=== PATIENT | male | born 1960 | race African-American/Black ===

== ENCOUNTER 2017-11-10 15:55 | Emergency (ER) | payer OTHER ==
[~2017-11-10] VITALS: Ht 177.8 cm; Wt 96.2 kg
[~2017-11-10 15:55] MED LIST: ADVAIR HFA115 MCG/21 INH; ADVAIRDISKUS; ALBUTEROL2.5 MG/0.1 IH; ALBUTEROL2.5 MG/31 IH; ALBUTEROL2.5 MG/31 INH; ANALGESIC325 MG PO; APAP/CODEINE ELI5 M1 OR; ASPIRIN EC325 M1 PO; AZITHROMYCIN 2250 MG PO; BYSTOLIC2.5 MG PO; CARDIZEM CD120 MG PO; CLOPIDOGREL; CRESTOR; EFFIENT10 MG PO; LIPITOR20 MG PO; LIPITOR40 MG PO; MEDROL DOSPAK21 TAB PO; MEDROLDOSEPACK PO; NORVASC 5 MG TAB5 MG PO; NORVASC10 MG PO; PLAVIX 75 MG TA75 M1 PO; PREDNISONE 10 M10 M1 PO; PREDNISONE 20 M20 MG PO; PROAIR HFA8.5 GM INH; SIMVASTATIN20 MG PO; ZPAK PO
[2017-11-10 16:13] VITALS: BP 139/91
[2017-11-10] MEDS ORDERED: DOXYCYCLINE 10100 MG PO (16:46)
[2017-11-10] MEDS ORDERED: PREDNISONE 20 M20 MG PO (16:46)
[2017-11-10] MEDS ORDERED: VENTOLIN HFA 1818 GM INH (17:11)
== END 2017-11-10 17:17 | disposition home or self-care (01) ==
LOC: ER 15:55
DX: J18.9 Pneumonia, unspecified organism (principal); J45.901 Unspecified asthma with (acute) exacerbation; E78.00 Pure hypercholesterolemia, unspecified; Z87.891 Personal history of nicotine dependence

== ENCOUNTER 2018-02-07 14:53 | Emergency (ER) | payer BC, OTHER ==
[~2018-02-07] VITALS: Ht 177.8 cm; Wt 95.3 kg
[~2018-02-07 14:53] MED LIST changes: +DOXYCYCLINE 10100 MG PO; +VENTOLIN HFA 1818 GM INH
[2018-02-07 15:11] LABS: URINE BILIRUBIN NEGATIVE (Negative); URINE BLOOD 3+ (Negative); URINE CLARITY CLEAR; URINE COLOR YELLOW; URINE GLUCOSE-RANDOM* NEGATIVE (Negative); URINE KETONES NEGATIVE (Negative); URINE NITRITE-REFLEX NEGATIVE (Negative); URINE PROTEIN (DIPSTICK) 2+ (Negative)
[2018-02-07 15:12] LABS: URINE LEUKOCYTES-REFLEX 3+ (Negative)
[2018-02-07 15:27] LABS: SQUAMOUS 0-3 Few /LPF (0-3); URINE RBC >20 Many /HPF (0-2); URINE WBC-REFLEX >25 Many /HPF (0-5)
[2018-02-07 15:28] LABS: MUCUS 0-3 Light strn/LPF (None Seen)
[2018-02-07 15:29] LABS: CASTS None Seen /LPF (None Seen); CRYSTALS None Seen /LPF (None Seen)
[2018-02-07 15:32] LABS: HEMATOCRIT 41.1 % (42.0-52.0); HEMOGLOBIN 13.6 gm/dL (14.0-18.0); MCH 24.3 pg (26.0-34.0); MCHC 33.2 g/dL (28.0-37.0); MCV 73.2 fL (80.0-100.0); PLATELET COUNT 149 thou/uL (150-400); RBC 5.61 mil/uL (4.50-6.00); RDW 16.8 % (10.5-14.5); WBC 10.5 thou/uL (4.0-11.0)
[2018-02-07 15:47] LABS: CALCIUM 8.6 mg/dL (8.5-10.1); CREATININE 1.4 mg/dL (0.7-1.3); POTASSIUM 3.6 mmol/L (3.5-5.1)
[2018-02-07 15:51] LABS: ALBUMIN 3.6 g/dL (3.4-5.0); MAGNESIUM 1.9 mg/dL (1.8-2.4); TOTAL PROTEIN 7.7 g/dL (6.4-8.2)
[2018-02-07 16:10] LABS: ABSOLUTE NEUTROPHILS 9.3 thou/uL (1.4-8.2); ANISOCYTOSIS 1+; MICROCYTES 2+
[2018-02-07 16:11] LABS: POLYCHROMASIA OCCASIONAL
[2018-02-07] MEDS ORDERED: PHENAZOPYRIDIN200 M2 PO (16:12)
[2018-02-07] MEDS ORDERED: BACTRIM DS TAB1 EACH PO (16:12)
[2018-02-07] MEDS ORDERED: ONDANSETRON HCL4 M2 PO (17:17)
== END 2018-02-07 17:26 | disposition home or self-care (01) ==
LOC: ER 14:53
PROVIDERS: Physician Assistant
DX: N39.0 Urinary tract infection, site not specified (principal); M79.641 Pain in right hand; M79.642 Pain in left hand; R25.2 Cramp and spasm; F17.210 Nicotine dependence, cigarettes, uncomplicated; J45.909 Unspecified asthma, uncomplicated; E78.00 Pure hypercholesterolemia, unspecified; I10 Essential (primary) hypertension; Z95.5 Presence of coronary angioplasty implant and graft

== ENCOUNTER 2019-04-19 01:41 | Emergency (ER) | payer OTHER ==
[~2019-04-19] VITALS: Ht 177.8 cm; Wt 90.7 kg
[~2019-04-19 01:41] MED LIST changes: +BACTRIM DS TAB1 EACH PO; +ONDANSETRON HCL4 M2 PO; +PHENAZOPYRIDIN200 M2 PO
[2019-04-19 03:23] VITALS: BP 123/72
[2019-04-19] MEDS ORDERED: ADVAIR HFA 230M12 GM INH (03:28)
[2019-04-19] MEDS ORDERED: PREDNISONE 20 M20 MG PO (03:28)
== END 2019-04-19 03:40 | disposition home or self-care (01) ==
LOC: ER 01:41
DX: J45.901 Unspecified asthma with (acute) exacerbation (principal); E78.00 Pure hypercholesterolemia, unspecified; Z95.2 Presence of prosthetic heart valve; Z87.891 Personal history of nicotine dependence

== ENCOUNTER 2019-09-14 13:51 | Emergency (ER) | payer OTHER ==
[~2019-09-14] VITALS: Ht 177.8 cm; Wt 92.1 kg
[~2019-09-14 13:51] MED LIST changes: +ADVAIR HFA 230M12 GM INH
[2019-09-14 14:58] LABS: ABSOLUTE NEUTROPHILS 5.8 thou/uL (1.4-8.2); BASOPHILS 0.3 % (0.0-2.0); EOSINOPHILS 0.1 % (0.0-3.0); HEMATOCRIT 44.4 % (42.0-52.0); HEMOGLOBIN 14.3 gm/dL (14.0-18.0); LYMPHOCYTES 1.9 % (24.0-44.0); MCH 24.5 pg (26.0-34.0); MCHC 32.2 g/dL (28.0-37.0); MCV 76.1 fL (80.0-100.0); MONOCYTES 10.3 % (1.0-8.0); PLATELET COUNT 131 thou/uL (150-400); POLYS 87.4 % (36.0-66.0); RBC 5.84 mil/uL (4.50-6.00); RDW 15.6 % (10.5-14.5); WBC 6.6 thou/uL (4.0-11.0)
[2019-09-14 15:08] LABS: CALCIUM 8.9 mg/dL (8.5-10.1); CREATININE 1.2 mg/dL (0.7-1.3); POTASSIUM 3.4 mmol/L (3.5-5.1)
[2019-09-14 15:21] LABS: ALBUMIN 3.8 g/dL (3.4-5.0); TOTAL BILIRUBIN 0.8 mg/dL (<0.1-1.0); TOTAL PROTEIN 8.1 g/dL (6.4-8.2)
[2019-09-14] MEDS ORDERED: TAMIFLU75 MG PO (15:44)
[2019-09-14 16:38] VITALS: BP 143/86
== END 2019-09-14 16:38 | disposition home or self-care (01) ==
LOC: ER 13:51
PROVIDERS: Physician Assistant
DX: J10.1 Influenza due to other identified influenza virus with other respiratory manifestations (principal); J45.909 Unspecified asthma, uncomplicated; E78.00 Pure hypercholesterolemia, unspecified; Z95.2 Presence of prosthetic heart valve; Z87.891 Personal history of nicotine dependence

== ENCOUNTER 2020-12-29 10:58 | Inpatient (IN) | payer BC ==
[~2020-12-29] VITALS: Ht 177.8 cm; Wt 95.7 kg
[~2020-12-29 10:58] MED LIST changes: +TAMIFLU75 MG PO
[2020-12-29 11:12] VITALS: BP 139/85
[2020-12-29 11:33] LABS: ABSOLUTE NEUTROPHILS 2.9 thou/uL (1.4-8.2); BASOPHILS 0.4 % (0.0-2.0); EOSINOPHILS 3.9 % (0.0-3.0); HEMATOCRIT 44.7 % (42.0-52.0); HEMOGLOBIN 14.6 gm/dL (14.0-18.0); LYMPHOCYTES 15.1 % (24.0-44.0); MCH 25.5 pg (26.0-34.0); MCHC 32.6 g/dL (28.0-37.0); MCV 78.1 fL (80.0-100.0); MONOCYTES 8.9 % (1.0-8.0); PLATELET COUNT 142 thou/uL (150-400); POLYS 71.7 % (36.0-66.0); RBC 5.72 mil/uL (4.50-6.00); RDW 15.2 % (10.5-14.5); WBC 4.1 thou/uL (4.0-11.0)
[2020-12-29 12:10] LABS: ANION GAP 11 mmol/L (7-16); BUN 22 mg/dL (7-18); CALCIUM 8.5 mg/dL (8.5-10.1); CHLORIDE 109 mmol/L (98-107); CO2 24 mmol/L (21-32); CREATININE 1.2 mg/dL (0.7-1.3); GLUCOSE 130 mg/dL (74-106); POTASSIUM 4.2 mmol/L (3.5-5.1); SODIUM 144 mmol/L (136-145)
[2020-12-29 12:20] LABS: ALBUMIN 3.4 g/dL (3.4-5.0); SGOT 18 U/L (15-37); SGPT 35 U/L (16-63); TOTAL BILIRUBIN 0.3 mg/dL (0.2-1.0); TOTAL PROTEIN 7.4 g/dL (6.4-8.2); TROPONIN-I <0.06 ng/mL (<0.06)
[2020-12-29 13:16] VITALS: BP 132/76
[2020-12-29 13:22] VITALS: BP 134/68
[2020-12-29 13:36] VITALS: BP 136/88
--- NOTE | 2020-12-29 14:09 | NUR ---
PT ARRIVED TO UNIT AT 1335. ALERT AND ORIENTED X 4. AMBULATES SAFELY INDEPENDENTLY. CARDIOLOGY EMISSIONS ENGINEER AND ECHO PERFORMED PRIOR TO ADMIN QUESTIONS ANSWERED. PT HAS NO PAIN AT THIS TIME.
[2020-12-29 14:21] LABS: CHOLESTEROL 313 mg/dL (<200); HDL CHOLESTEROL 55 mg/dL (>40); LDL CHOLESTEROL 248 mg/dL (<100); TC:HDL 5.7 Ratio (Not establshd); TRIGLYCERIDE 53 mg/dL (<150); VLDL 11 mg/dL (<40)
--- NOTE | 2020-12-29 15:26 | NUR ---
PT STATES HE HAS NOT BEEN ABLE TO RFID ENGINEER HIS MEDICATION DUE TO COST. HE GETS PAID NEXT TUESDAY AND PLANS TO RFID ENGINEER HIS MEDS THEN.
[2020-12-29 16:27] VITALS: BP 130/87
[2020-12-29 21:39] VITALS: BP 147/87
[2020-12-30] VITALS (12 sets, daily range): BP systolic 110–139; BP diastolic 66–673
[2020-12-30 03:06] LABS: GLYCOHEMOGLOBIN (HGB A1C) 5.8 % (4.8-5.6)
--- NOTE | 2020-12-30 04:21 | NUR ---
PRE PROCEDURE COVID PCR CAME BACK POSITIVE. THRESHOLD IS 36.3. LACHELLE FROM LAB CALLED RESULTS. NOTIFIED TOOL GRINDER SET UP OPERATOR GEAR AND SEAM CLOSER. WILL CALL CARDIO AFTER 0600. PT AFEBRILE OVERNIGHT, NO COMPLAINTS OF CHEST PAIN. HEART RATES IN HIGH 50-60'S.
[2020-12-30 05:36] LABS: HEMATOCRIT 43.2 % (42.0-52.0); HEMOGLOBIN 13.9 gm/dL (14.0-18.0); MCH 25.4 pg (26.0-34.0); MCHC 32.3 g/dL (28.0-37.0); MCV 78.6 fL (80.0-100.0); RBC 5.5 mil/uL (4.50-6.00); RDW 15.2 % (10.5-14.5); WBC 4.2 thou/uL (4.0-11.0)
[2020-12-30 05:45] LABS: ANION GAP 6 mmol/L (7-16); BUN 21 mg/dL (7-18); CALCIUM 8.1 mg/dL (8.5-10.1); CHLORIDE 110 mmol/L (98-107); CO2 28 mmol/L (21-32); CREATININE 1.2 mg/dL (0.7-1.3); GLUCOSE 95 mg/dL (74-106); POTASSIUM 4.3 mmol/L (3.5-5.1); SODIUM 144 mmol/L (136-145); TROPONIN-I <0.06 ng/mL (<0.06)
--- NOTE | 2020-12-30 09:26 | EKG ---
[address] [address] [place] [address] ELECTROCARDIOGRAM REPORT Name: SELINA SOLIMAN Room #: 362-P ADM IN M.R.#: [id number] Admission: 12/29/20 Attend Phys: Lavon Zamarripa MD Discharge: Date of : 62 Report #: [id number] [facility] ED Test Date: 2020-12-29 Test Time: 11:03:38 Pat Name: SELINA SOLIMAN Department: Room: [facility] Gender: M Supervisor Wet Room: PAWEL : 1960 Requested By: Shayne Dudley Order Number: [id number] MD: Lexx Hawkins Measurements Intervals [place] Rate: 77 P: 23 SC: 174 QRS: 18 QRSD: 129 T: 154 QT: 418 QTc: 474 Interpretive Statements Incomplete analysis due to missing data in precordial lead(s) Sinus rhythm Right bundle branch block Abnormal T, consider ischemia, lateral leads Missing lead(s): V4 Compared to ECG 10/19/2013 07:27:25 Incomplete tracing is now present. No significant changes Electronically Signed On 12-30-2020 9:26:32 CDT by Lexx Hawkins [email or web address] <ELECTRONICALLY SIGNED> By: Lexx Hawkins MD, [facility] 12/30/20 0926 1103 1103 Lexx Hawkins MD, [facility] /EPI
--- NOTE | 2020-12-30 09:56 | 2DMMODE ---
[facility] [place] [address] 2 D/M-MODE ECHOCARDIOGRAM Name: SELINA SOLIMAN Room #: 362-P ADM IN M.R.#: [id number] Admission: 12/29/20 Attend Phys: Lavon Zamarripa MD Discharge: Date of : 62 Report #: [id number] THIS REPORT FOR: cc: Shayne River James A. DO Lundgren, Craig H. MD [facility] ~ APPROVED REPORT Study performed: 12/29/2020 13:43:59 EXAM: Comprehensive 2D, Doppler, and color-flow Echocardiogram Patient Location: Bedside Room #: 362 Status: routine BSA: 2.12 HR: 64 bpm BP: 136/88 mmHg Rhythm: NSR Other Information Study Quality: Adequate Indications Chest Pain Hx: CAD, stent. 2D Dimensions RVDd: 36.77 mm IVSd: 13.21 (7-11mm) LVOT Diam: 21.99 (18-24mm) LVDd: 52.13 mm PWd: 12.54 (7-11mm) Ascending Ao: 30.03 (22-36mm) LVDs: 38.37 (25-40mm) Left Atrium: 47.91 (27-40mm) Aortic Root: 38.25 mm Volumes Left Atrial Volume (Systole) Single Plane 4CH: 144.39 mL Single Plane 2CH: 109.58 mL LA ESV Index: 65.00 mL/m2 Aortic Valve AoV Peak Car.: 1.28 m/s AO Peak Gr.: 6.55 mmHg LVOT Max P.79 mmHg LVOT Max V: 1.09 m/s [facility] [address] [address] 2 D/M-MODE ECHOCARDIOGRAM Name: SELINA SOLIMAN Room #: 362-P [facility] IN .R.#: [id number] Admission: 12/29/20 Attend Phys: Lavon Zamarripa MD Discharge: Date of : 62 Report #: [id number] Vmax: 3.25 cm2 Mitral Valve E/A Ratio: 2.5 MV Decel. Time: 142.38 ms MV E Max Car.: 0.64 m/s MV A Car.: 0.26 m/s MV PHT: 41.29 ms IVRT: 65.74 ms Pulmonary Valve PV Peak Car.: 0.66 m/s PV Peak Gr.: 1.75 mmHg Pulmonary Vein P Vein S: 0.33 m/s P Vein D: 0.49 m/s P Vein S/D Ratio: 0.67 Tricuspid Valve TR Peak Car.: 3.50 m/s RAP Estimate: 5.00 mmHg TR Peak Gr.: 49.00 mmHg PA Pressure: 54.00 mmHg Left Ventricle The left ventricle is normal size. There is normal LV segmental wall motion. Severe apical hypertophy Left ventricular systolic function is hyperdynamic. LVEF is 65-70%. Moderate diastolic dysfunction is present. Right Ventricle The right ventricle is normal size. The right ventricular systolic function is normal. Atria Left atrium is severely dilated. Right atrium is mildly dilated. Aortic Valve The aortic valve is normal in structure. No aortic regurgitation is present. There is no aortic valvular stenosis. Mitral Valve The mitral valve is normal in structure. Moderate mitral regurgitation. No evidence of mitral valve stenosis. Tricuspid Valve [facility] [address] [address] 2 D/M-MODE ECHOCARDIOGRAM Name: SELINA SOLIMAN Room #: 362-P [facility] IN M.R.#: [id number] Admission: 12/29/20 Attend Phys: Lavon Zamarripa MD Discharge: Date of : 62 Report #: [id number] The tricuspid valve is normal in structure. Mild to moderate tricuspid regurgitation. Estimated PAP is 50-55mmHg. Pulmonic Valve The pulmonary valve is normal in structure. There is no pulmonic valvular regurgitation. Great Vessels Aortic root is borderline dilated. The ascending aorta is normal in size. IVC is normal in size and collapses >50% with inspiration. Pericardium Small pericardial effusion. <Conclusion> Left ventricular systolic function is hyperdynamic. There is normal LV segmental wall motion. LVEF is 65-70%. Possible apical hypertrophic cardiomyopathy Moderate diastolic dysfunction is present. Left atrium is severely dilated. The aortic valve is normal in structure. No aortic regurgitation or stenosis. The mitral valve is normal in structure. Moderate mitral regurgitation. Mild to moderate tricuspid regurgitation. Estimated pulmonary artery pressure of 50-55mmHg. Small pericardial effusion. <ELECTRONICALLY SIGNED> By: Lexx Hawkins MD, [facility] 12/30/20954 4 4 Lexx Hawkins MD, FAC /INF
--- NOTE | 2020-12-30 14:23 | NUR ---
ADV. DIR. CONSULT [id number] WAS COMPLETED BY THIS BINDERY MACHINE FEEDER OFFBEARER WITH THE ASISITANCE OF THE APPOINTMENT COORDINATOR. THE PATIENT WAS FOUND TO HAVE A POSITIVE COVID TEST EARLY THIS MORNING. THE BINDERY MACHINE FEEDER OFFBEARER SPOKE TO THE PATIENT BY TELEPHONE AND GATHERED THE INFORMATION. HE WANTED HIS TO BE HIS DPOA FOR HEALTHCARE. THE INFORMATION HE GAVE ME MATCHED HIS FACESHEET. I FILLED OUT THE DPOA FORM AND EXPLAINED HE WOULD NEED OT SIGN IT AND HAVE TWO STAFF WITHNESS IT. I ASKED HIS NURSE IF WHEN SHE WENT INTO HIS ROOM WITH ANOTHER STAFF PERSON, TO WITNESS HIS SIGNATURE ON THE DOCUMENT. THE APPOINTMENT COORDINATOR WAS GOING TO MAKE SURE IT GOT INTO THE CHART.
--- NOTE | 2020-12-30 14:49 | NUR ---
INITIAL ASSESSMENT: SW reviewed chart and spoke with nursing and attending physician. Pt was admitted from home due to chest pain. Pt placed in Enhanced Isolation due to COVID. Pt had COVID in August of 2020. Pt has not been vaccinated. Pt had positive test upon admission. Repeat test ordered this morning. Results pending. Pt was taken to the wastewater analyst lab analyst earlier today. Stent placed. Spiritual Care discussed completing Advanced Directive document with pt via phone. Pt would like to appoint his , Abbie, as his DPOA. SW spoke with pt via phone. Introduced role of SW. Pt is alert/orientated x 4. Pt reports he lives at home with his . Prior to admission, pt was independent with ADLs. No use of DME. 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 Pt's PCP is Dr. River. Plan is for pt to discharge home when medically stable. DPOA documentation is on pt's chart. SW is following to assist as needed with discharge planning.
--- NOTE | 2020-12-30 16:13 | CATHLAB ---
[facility] [place] [address] INVASIVE PROCEDURE REPORT Name: SELINA FAJARDO Room #: 362-P ADM IN M.R.#: [id number] Admission: 12/29/20 Attend Phys: Lavon Zamarripa MD Discharge: Date of : 62 Report #: [id number] THIS REPORT FOR: cc: Shayne River James A. DO Lundgren, Craig H. MD [facility] ~ APPROVED REPORT Study performed: 12/30/2020 12:12:02 Patient Details Patient Status: In-Patient Room #: The patient is a 60 year-old male Event Personnel Lexx Hawkins Tool Grinder Operator External, Alvina Sue RN RN, [place] RTR Scrub, Sher Fajardo RTR Monitor Procedures Performed Art Access - R femoral artery* Left Heart Cath w/or w/o Coronaries [id number] [facility] [address] Place w/wo Plasty Single DIAG 920886 09275 Initial Mod Sed Same Phys/QHP Gr5y 329159 75326 Mod Sed Same Phys/QHP Ea 645318 Hemostasis w/ Mynx Indication Chest pain Procedure Narrative The patient was brought urgently to the Cardiac Catheterization Laboratory and was prepped and draped in a sterile manner. The Right Groin^ was infiltrated with 1% Lidocaine subcutaneous anesthesia. A PINNACLE 6FR Sheath #[id number] sheath was inserted into the RFA^. Coronary angiography was performed using coronary diagnostic catheters. The right coronary system was accessed and visualized with a JR4 catheter. The left coronary system was accessed and visualized with a JL4 catheter. The left ventricle was accessed and visualized with a PIGTAIL catheter. Left ventriculogram was performed in 30 degree projection. Closure device was deployed with a 6 Fr MYNXGRIP 6/7F #[id number]. The patient tolerated the procedure well and there were no complications associated with the procedure. There was no hematoma. Intraoperative Conscious Sedation Sedation start time: 1231 Case end Time: [facility] [address] [place] [address] INVASIVE PROCEDURE REPORT Name: SELINA FAJARDO Room #: 362-P [facility] IN [facility].#: [id number] Admission: 12/29/20 Attend Phys: Lavon Zamarripa MD Discharge: Date of : 62 Report #: [id number] 1338 Fentanyl 100 mcg Versed 2 mg Fluoro Time: 8.80 minutes Dose: DAP 98824.00 cGycm2 1666 mGy Contrast Type and Amount: Omnipaque 220 ml Coronary Angiography The patient's coronary anatomy is right dominant. Diagnostic Cath Left Main Normal left main LAD Widely patent proximal LAD stent, minimal mid to distal LAD plaquing Diagonal 1 Severe 99% ostial first diagonal branch stenosis Circumflex Large but nondominant circumflex comprised of a single large bifurcating marginal branch OM1 Mild 40% proximal OM1 stenosis Right Coronary Dominant right coronary with 20-30% proximal and mid vessel plaquing R PDA Normal posterior descending branch RPLV Normal posterior lateral branch Left Ventriculography The left ventricle is normal in size with normal contractility. The left ventricular ejection fraction is estimated to be 65-70%. Left ventricular wall motion abnormalities are not present. There is no mitral insufficiency. Ventriculography suggests apical hypertrophic cardiomyopathy with a probable mid LV obstruction. IVUS Intravascular Ultrasound was performed on the proximal left anterior descending artery segment vessel. A 3 Guide Catheter was used to engage the LAUNCHER 6FR EBU 3.5 #[id number] ostium. A Luge Wire .014 x 182CM #[id number] was used. IVUS Findings TREK NC RX 3.0 X 12 #[id number] Hemodynamics The aortic pressure is 127/67 mmHg with a mean of 93 mmHg. The left ventricular pressure is 117/16 mmHg with a mean of mmHg. The left ventricular end diastolic pressure is 28 mmHg. [facility] [address] [place] [address] INVASIVE PROCEDURE REPORT Name: SELINA FAJARDO Room #: 362-[facility] IN .R.#: [id number] Admission: 12/29/20 Attend Phys: Lavon Zamarripa MD Discharge: Date of : 62 Report #: [id number] PCI Technique Lesion Anticoagulation was achieved with Heparin, Integrilin. Patient was preloaded with Plavix. Percutaneous coronary intervention was performed on the first diagnonal branch segment. The lesion stenosis prior to intervention was 99% with AZEB 3 flow. A LAUNCHER 6FR EBU 3.5 #[id number] Guide Catheter was used to engage the ostium. A Luge Wire .014 x 182CM #[id number] Interventional Guidewire was used to cross the lesion. BALLOON DILATION A Balloon catheter Sprinter OTW 2.5 x 12 #[id number] was inserted and inflated up to 14.00atm for 8seconds. Additional Inflation: 18.00atm for 27seconds. STENT DEPLOYMENT A drug-eluting stent RESOLUTE YEMI RX 3.0 X 15 #[id number] was inserted and inflated up to 18.00atm for 30seconds. The Resolute stent was placed from the proximal LAD into the diagonal branch. POST STENT DEPLOYMENT BALLOON DILATION A Balloon catheter TREK NC RX 3.0 X 12 #[id number] was inserted and inflated up to 24.00atm for 27seconds. Additional Inflation: 24.00atm for 30seconds. METAL TILE LATHER OF LAD WITH THE TREK NC RX 3.0X12MM INFLATION OF 30 EVIN AND 38 SECS Final angiography reveals 0 % stenosis with AZEB 3 flow. PCI Technique Lesion Percutaneous coronary intervention was performed on the proximal left anterior descending artery segment. The lesion stenosis prior to intervention was % with AZEB 3 flow. A LAUNCHER 6FR EBU 3.5 #[id number] Guide Catheter was used to engage the ostium. A Luge Wire .014 x 182CM #[id number] Interventional Guidewire was used to cross the lesion. BALLOON DILATION A Balloon catheter TREK NC RX 3.0 X 12 #[id number] was inserted and inflated up to evin for seconds. Additional Inflation: 24.00atm for 30seconds. The luge wire was pulled back and placed down the LAD through the tines of the newly placed diagonal stent. The LAD was ballooned with the same 3.0 x 12 mm trek stent up to 24 EVIN. There is no encroachment of the proximal LAD by this stent. Final angiography reveals 0 % stenosis with AZEB 3 flow. [facility] [address] [place] [address] INVASIVE PROCEDURE REPORT Name: SELINA FAJARDO Room #: 362-P ADM IN M.R.#: [id number] Admission: 12/29/20 Attend Phys: Lavon Zamarripa MD Discharge: Date of : 62 Report #: [id number] Conclusion 1. Apical hypertrophic cardiomyopathy. EF 65-70% 2. Normal left main 3. Widely patent previously placed proximal LAD stent. Critical ostial diagonal branch stenosis successfully stented with a 3.0 x 15 mm Resolute stent 4. The diagonal branch stent (extending from the proximal LAD into the diagonal branch) and LAD stent were postdilated with a 3.0 noncompliant balloon 5. 40-50% proximal OM1 stenosis 6. Mild plaquing in a dominant right coronary Recommendations Cardiac Rehabilitation Referral <ELECTRONICALLY SIGNED> By: Lexx Hawkins MD, FACC 12/30/201612 12 12 Lexx Hawkins MD, FACC /INF
--- NOTE | 2020-12-30 16:28 | EKG ---
[address] [place] [address] ELECTROCARDIOGRAM REPORT Name: SELINA SOLIMAN Room #: 362-P ADM IN M.R.#: [id number] Admission: 12/29/20 Attend Phys: Lavon Zamarripa MD Discharge: Date of : 62 Report #: [id number] [facility] Test Date: 2020-12-30 Test Time: 16:13:45 Pat Name: SELINA SOLIMAN Department: Room: 362 P Gender: M Graduate Teacher Education: FSCHWALSEBAS : 1960 Requested By: Lexx Hawkins Order Number: [id number] MD: Lexx Hawkins Measurements Intervals [place] Rate: 58 P: 58 ID: 168 QRS: 11 QRSD: 136 T: 108 QT: 450 QTc: 443 Interpretive Statements Sinus rhythm Left atrial enlargement Right bundle branch block Abnrm T, consider ischemia, anterolateral lds, consider apical hypertrophy Compared to ECG 12/29/2020 11:03:38 No significant change was found Electronically Signed On 12-30-2020 16:28:32 CDT by Lexx Hawkins [email or web address] <ELECTRONICALLY SIGNED> By: Lexx Hawkins MD, [facility] 12/30/20 1628 1613 1613 Lexx Hawkins MD, [facility] /EPI
[2020-12-31] VITALS: BP 135/83
[2020-12-31 04:00] VITALS: BP 135/83
[2020-12-31 04:49] VITALS: BP 135/83
[2020-12-31 05:57] LABS: HEMATOCRIT 44.5 % (42.0-52.0); HEMOGLOBIN 14.6 gm/dL (14.0-18.0); MCH 25.7 pg (26.0-34.0); MCHC 32.8 g/dL (28.0-37.0); MCV 78.4 fL (80.0-100.0); RBC 5.67 mil/uL (4.50-6.00); RDW 15.2 % (10.5-14.5); WBC 5.1 thou/uL (4.0-11.0)
[2020-12-31 06:38] LABS: ALBUMIN 3.1 g/dL (3.4-5.0); CALCIUM 8.2 mg/dL (8.5-10.1); CREATININE 1.1 mg/dL (0.7-1.3); POTASSIUM 4.4 mmol/L (3.5-5.1); TOTAL BILIRUBIN 0.5 mg/dL (0.2-1.0); TOTAL PROTEIN 6.9 g/dL (6.4-8.2); TROPONIN-I 0.1 ng/mL (<0.06)
--- NOTE | 2020-12-31 06:47 | NUR ---
CATH SITE C/D/I. VSS OVERNIGHT. PT IN [employer]. HOURLY ROUNDING.
[2020-12-31 08:21] VITALS: BP 143/85
[2020-12-31] MEDS ORDERED: METOPROLOL SUCC50 MG PO (09:03)
[2020-12-31] MEDS ORDERED: BAYER CHEWABLE81 MG PO (09:03)
[2020-12-31] MEDS ORDERED: CLOPIDOGREL75 MG PO (09:03)
[2020-12-31] MEDS ORDERED: ROSUVASTATIN CA40 MG PO (09:03)
[2020-12-31] MEDS ORDERED: REPATHA SU140 MG/1 M SUBQ (09:08)
[2020-12-31 10:17] VITALS: BP 143/86
--- NOTE | 2020-12-31 12:04 | HC ---
[facility] [place] [place] [address] CONSULTATION Name: SELINA SOLIMAN Room #: 362- ADM IN M.R.#: [id number] Admission: 12/29/20 Attend Phys: Lavon Zamarripa MD Discharge: Date of : 62 Report #: [id number] THIS REPORT FOR: cc: Shayne River James A. DO Barry, Joseph W. MD ~ DATE OF SERVICE: 12/30/2020 INFECTIOUS DISEASE CONSULTATION ATTENDING PHYSICIAN: Dr. Zamarripa. REASON FOR EVALUATION: Positive COVID testing. HISTORY OF PRESENT ILLNESS: Chart reviewed, patient examined. This is a 60-year-old gentleman with history of coronary artery disease who presented with complaints of chest pain that radiated to his back. He has had previous history of positive COVID testing back in 08/2020. He does work in a long-term care facility. He gets test weekly, testing last week was negative. His screening PCR was found to be positive, second test is pending. He denies any pulmonary-related symptoms in particular, no dyspnea, no cough. Denies any loss of sense of smell or taste. Appetite has been satisfactory. No gastrointestinal related complaints. His weight has been stable. ____ work at the facility. He generally is at home. Chest x-ray showed cardiomegaly without evidence of CHF. No pulmonary opacities. He is simply scheduled to undergo cardiac catheterization. ALLERGIES: None known. MEDICATIONS: Include atorvastatin, diltiazem CD, aspirin, nitroglycerin, morphine as needed. PAST MEDICAL HISTORY: Known coronary artery disease with previous stenting, asthma neurofibromatosis, hypertension, and high cholesterol. SOCIAL HISTORY: Former smoker. No ethanol. No illicit drug use. FAMILY HISTORY: Noncontributory. REVIEW OF SYSTEMS: Otherwise, unremarkable 10-point review of systems. PHYSICAL EXAMINATION: GENERAL: He is alert, cooperative, appropriate, mild distress, appears to be reasonably well nourished. VITAL SIGNS: Temperature 98.1, pulse 61, respirations 16, blood pressure [address] [address] CONSULTATION Name: SELINA SOLIMAN Room #: 362-P [facility] IN M.R.#: [id number] Admission: 12/29/20 Attend Phys: Lavon Zamarripa MD Discharge: Date of : 62 Report #: [id number] 139/76. SKIN: Warm, has hundreds of lesions consistent with his diagnosis of neurofibromatosis. HEENT: Normocephalic. Extraocular muscles intact. NECK: Supple. HEART: Regular. I do not appreciate a murmur. ____: Generally clear. ABDOMEN: Soft, nontender, no organomegaly. GENITOURINARY AND RECTAL: Deferred. LABORATORY DATA: Electrolytes: Sodium 144, potassium 4.3, chloride 110, bicarbonate is 20, anion gap was 6, BUN and creatinine 21 and 1.2, glucose of 95. CBC: White count 4.2, H and H 13.9 and 43.2, platelets of 146. Coronavirus testing positive. Hemoglobin A1c of 5.8. Troponin less than 0.06, CPK MB 4.0. Lipid profile: Cholesterol 313, LDL 248, HDL 55. Liver function tests unremarkable. Albumin of 3.4, total protein 7.4. Estimated GFR of 75. Chest x-ray: Cardiomegaly without evidence of CHF or acute pulmonary process. ASSESSMENT AND: Positive COVID test in a patient, who was known to have COVID last winter and has been tested weekly, did have a repeat test done and I suspect a false positive. I do not think it is indicative of any sort of likelihood of transmissible disease at this point. We will await those results ____ the urgency of evaluation of his coronary arteries, I think it is reasonable to proceed with coronary catheterization. Continue to monitor expectantly. If clinical pattern would change, would consider repeat evaluation, possible therapy at that point. <ELECTRONICALLY SIGNED> By: Dean Casas MD 12/31/20 1204 0943 1136 Dean Casas MD /nt
--- NOTE | 2020-12-31 13:22 | NUR ---
PT IS READY FOR DISCHARGE THOUGH STATES THAT HE CANNOT GO HOME UNTIL GETS HERE WHICH WILL BE 1700. THIS IS PER PT'S REQUEST. OTHERWISE PT IS ASYMPTOMATIC AND READY TO GO HOME
[2020-12-31 14:30] VITALS: BP 143/86
--- NOTE | 2020-12-31 17:34 | EKG ---
[address] [place] [address] ELECTROCARDIOGRAM REPORT Name: SELINA SOLIMAN Room #: 362- DIS IN M.R.#: [id number] Admission: 12/29/20 Attend Phys: Lavon Zamarripa MD Discharge: 12/31/20 Date of : 62 Report #: [id number] [facility] Test Date: 2020-12-31 Test Time: 07:42:59 Pat Name: SELINA SOLIMAN Department: Room: 362 Gender: M Lead Tinner: TESSA : 1960 Requested By: Lexx Hawkins Order Number: [id number] MD: Lexx Hawkins Measurements Intervals [place] Rate: 67 P: 48 MN: 168 QRS: 33 QRSD: 133 T: 91 QT: 411 QTc: 434 Interpretive Statements Sinus rhythm Right bundle branch block Abnormal T, consider ischemia, lateral leads versus apical hypertrophy Baseline wander in lead(s) V3 Compared to ECG 12/30/2020 16:13:45 No significant change was found Electronically Signed On 12-31-2020 17:33:46 CDT by Lexx Hawkins [email or web address] <ELECTRONICALLY SIGNED> By: Lexx Hawkins MD, [facility] 12/31/20 1733 0742 0742 Lexx Hawkins MD, [facility] /EPI
== END 2020-12-31 16:33 | disposition home or self-care (01) | DRG 246 ==
LOC: ER 10:58 → EROBS 13:03 → 3W 13:03
PROVIDERS: Emergency Medicine; Internal Medicine; Nurse Practitioner Adult Health; ADMIT Hospitalist; ATTEND Hospitalist
PROC: B2151ZZ Fluoroscopy of Left Heart using Low Osmolar Contrast (ICD-10-PCS; principal; 2020-12-30)
PROC: 4A023N7 Measurement of Cardiac Sampling and Pressure, Left Heart, Percutaneous Approach (ICD-10-PCS; principal; 2020-12-30)
PROC: B240ZZ3 Ultrasonography of Single Coronary Artery, Intravascular (ICD-10-PCS; principal; 2020-12-30)
PROC: B2111ZZ Fluoroscopy of Multiple Coronary Arteries using Low Osmolar Contrast (ICD-10-PCS; principal; 2020-12-30)
PROC: 027034Z Dilation of Coronary Artery, One Artery with Drug-eluting Intraluminal Device, Percutaneous Approach (ICD-10-PCS; principal; 2020-12-30)
PROC: 02703ZZ Dilation of Coronary Artery, One Artery, Percutaneous Approach (ICD-10-PCS; principal; 2020-12-30)
DX: I25.110 Atherosclerotic heart disease of native coronary artery with unstable angina pectoris (principal); U07.1 COVID-19; J45.909 Unspecified asthma, uncomplicated; I10 Essential (primary) hypertension; E78.00 Pure hypercholesterolemia, unspecified; E78.5 Hyperlipidemia, unspecified; Z79.82 Long term (current) use of aspirin; Z95.5 Presence of coronary angioplasty implant and graft; Z87.891 Personal history of nicotine dependence; Z79.899 Other long term (current) drug therapy
CPT/HCPCS: 10879

== ENCOUNTER → 2021-05-25 | Outpatient (CLI) | payer BC ==
[~2021-05-25] MED LIST changes: +BAYER CHEWABLE81 MG PO; +CLOPIDOGREL75 MG PO; +METOPROLOL SUCC50 MG PO; +REPATHA SU140 MG/1 M SUBQ; +ROSUVASTATIN CA40 MG PO
== END ==
LOC: SJCVCIMAG
PROVIDERS: ATTEND Internal Medicine
DX: I08.0 Rheumatic disorders of both mitral and aortic valves (principal); I42.2 Other hypertrophic cardiomyopathy; I10 Essential (primary) hypertension; E78.5 Hyperlipidemia, unspecified; I25.10 Atherosclerotic heart disease of native coronary artery without angina pectoris

== ENCOUNTER 2021-07-03 05:05 | Emergency (ER) | payer BC ==
[~2021-07-03] VITALS: Ht 177.8 cm; Wt 90.7 kg
[2021-07-03] MEDS ORDERED: PREDNISONE 10 M10 MG PO (06:11)
[2021-07-03] MEDS ORDERED: IPRAT-ALBUT 0.5-3 ML INH (07:02)
[2021-07-03 07:07] VITALS: BP 163/108
== END 2021-07-03 07:38 | disposition home or self-care (01) ==
LOC: ER 05:05
DX: J45.909 Unspecified asthma, uncomplicated (principal); Z20.822 Contact with and (suspected) exposure to COVID-19; R06.02 Shortness of breath; I25.10 Atherosclerotic heart disease of native coronary artery without angina pectoris; E78.5 Hyperlipidemia, unspecified; I10 Essential (primary) hypertension; Z86.16 Personal history of COVID-19; Z79.82 Long term (current) use of aspirin; Z79.899 Other long term (current) drug therapy; Z79.891 Long term (current) use of opiate analgesic; Z79.51 Long term (current) use of inhaled steroids; Z87.891 Personal history of nicotine dependence

== ENCOUNTER 2021-07-13 12:06 | Emergency (ER) | payer BC ==
[~2021-07-13] VITALS: Ht 180.3 cm; Wt 88.5 kg
[~2021-07-13 12:06] MED LIST changes: +IPRAT-ALBUT 0.5-3 ML INH; +PREDNISONE 10 M10 MG PO
[2021-07-13] MEDS ORDERED: AZITHROMYCIN500 MG PO (15:03)
[2021-07-13 15:18] VITALS: BP 158/94
== END 2021-07-13 15:19 | disposition home or self-care (01) ==
LOC: ER 12:06
DX: R05.3 Chronic cough (principal); I10 Essential (primary) hypertension; J45.909 Unspecified asthma, uncomplicated; I25.10 Atherosclerotic heart disease of native coronary artery without angina pectoris; E78.5 Hyperlipidemia, unspecified; Z86.16 Personal history of COVID-19; Z79.82 Long term (current) use of aspirin; Z79.51 Long term (current) use of inhaled steroids; Z79.891 Long term (current) use of opiate analgesic; Z79.899 Other long term (current) drug therapy; Z87.891 Personal history of nicotine dependence

== ENCOUNTER 2021-09-23 15:37 | Emergency (ER) | payer BC ==
[~2021-09-23] VITALS: Ht 177.8 cm; Wt 89.8 kg
[~2021-09-23 15:37] MED LIST changes: +AZITHROMYCIN500 MG PO
[2021-09-23 16:35] VITALS: BP 154/96
[2021-09-23] MEDS ORDERED: MEDROLDOSEPACK PO (18:17)
[2021-09-23] MEDS ORDERED: FLEXERIL PO (18:19)
== END 2021-09-23 18:36 | disposition home or self-care (01) ==
LOC: ER 15:37
DX: M25.551 Pain in right hip (principal); I25.10 Atherosclerotic heart disease of native coronary artery without angina pectoris; J45.909 Unspecified asthma, uncomplicated; E78.5 Hyperlipidemia, unspecified; I10 Essential (primary) hypertension; Z86.16 Personal history of COVID-19; Z79.82 Long term (current) use of aspirin; Z79.899 Other long term (current) drug therapy; Z79.51 Long term (current) use of inhaled steroids; Z79.891 Long term (current) use of opiate analgesic; Z87.891 Personal history of nicotine dependence